=== PATIENT | male | born 1975 | race African-American/Black ===

== ENCOUNTER 2017-07-11 18:02 | Emergency (ER) | payer MEDICAID ==
[~2017-07-11] VITALS: Ht 175.3 cm; Wt 83.0 kg
[2017-07-11 23:51] LABS: BASOPHILS % 0.8 % (0.0-2.0); EOSINOPHILS % 1.4 % (0.0-5.0); HEMATOCRIT. 40.7 % (42.0-52.0); HEMOGLOBIN. 13.9 g/dL (14.0-18.0); LYMPHOCYTES % 24.5 % (20.0-50.0); MEAN CORPUSCULAR HEMOGLOBIN 28.4 pg (28.0-32.0); MEAN CORPUSCULAR VOLUME 83.5 fL (80.0-94.0); MEAN PLATELET VOLUME 9.7 fl (7.4-10.4); MONOCYTES % 7.8 % (2.0-8.0); NEUTROPHILS % 65.5 % (40.0-76.0); PLATELET 209 x1000/uL (130-400); RED BLOOD CELL COUNT 4.88 mill/uL (4.7-6.1)
[2017-07-12 00:03] LABS: PARTIAL THROMBOPLASTIN TIME 23.2 sec (23.4-31.0)
[2017-07-12 00:12] LABS: CHLORIDE 106 mEq/L (98-107)
[2017-07-12 01:30] VITALS: BP 116/71
== END 2017-07-12 01:34 | disposition home or self-care (01) ==
LOC: ER 18:23
DX: R04.0 Epistaxis (principal); Z98.890 Other specified postprocedural states
CPT/HCPCS: 36415; 80053; 85025; 85610; 85730; 99284

== ENCOUNTER 2017-08-13 19:02 | Emergency (ER) | payer MEDICAID ==
[~2017-08-13] VITALS: Ht 180.3 cm; Wt 120.0 kg
[2017-08-13] MEDS ORDERED: SODIUM CHLORIDE 0.9% 1,000 ML IV ONE (22:46)
[2017-08-13] MEDS ORDERED: KETOROLAC 30MG/ML VIAL IV STA (22:46)
[2017-08-13] MEDS ORDERED: METOCLOPRAMIDE HCL 5MG TABLET PO ONE (23:00)
[2017-08-13] MEDS ORDERED: DIPHENHYDRAMINE 25MG CAPSULE PO ONE (23:00)
[2017-08-13 23:07] LABS: BASOPHILS % 0.8 % (0.0-2.0); EOSINOPHILS % 1.6 % (0.0-5.0); HEMATOCRIT. 46.1 % (42.0-52.0); HEMOGLOBIN. 15.9 g/dL (14.0-18.0); LYMPHOCYTES % 19.3 % (20.0-50.0); MEAN CORPUSCULAR HEMOGLOBIN 28.6 pg (28.0-32.0); MEAN CORPUSCULAR VOLUME 83.1 fL (80.0-94.0); MEAN PLATELET VOLUME 9.7 fl (7.4-10.4); MONOCYTES % 5.2 % (2.0-8.0); NEUTROPHILS % 73.1 % (40.0-76.0); PLATELET 259 x1000/uL (130-400); RED BLOOD CELL COUNT 5.55 mill/uL (4.7-6.1); RED CELL DISTRIBUTION WIDTH 14.1 % (11.6-14.6)
[2017-08-13 23:13] LABS: CHLORIDE 102 mEq/L (98-107)
[2017-08-13 23:15] LABS: PROTHROMBIN TIME 10.4 sec (9.4-11.6)
[2017-08-14 02:34] VITALS: BP 122/74
== END 2017-08-14 02:33 | disposition home or self-care (01) ==
LOC: ER 20:05
DX: R55 Syncope and collapse (principal); R51 Headache
CPT/HCPCS: 36415; 70450; 80053; 85025; 85610; 93005; 96361; 96374; 99285; J1885; J7030; Z7610; J8597; Q0163

== ENCOUNTER 2017-09-08 09:04 | Emergency (ER) | payer MEDICAID ==
[~2017-09-08] VITALS: Ht 170.2 cm; Wt 125.0 kg
[2017-09-08 11:21] VITALS: BP 124/72
== END 2017-09-08 11:27 | disposition home or self-care (01) ==
LOC: ER 09:59
DX: Z48.02 Encounter for removal of sutures (principal)
CPT/HCPCS: 99283; Z7610